=== PATIENT | female | born 1995 | race Caucasian/White ===

== ENCOUNTER 2018-03-06 20:14 | Inpatient (IN) | payer OTHER ==
[2018-03-06] MEDS ORDERED: BUTORPHANOL 2 MG INJ IV (21:30)
[2018-03-06] MEDS ORDERED: LIDOCAINE 1% (MPF) 30 ML INJ INJ (21:30)
[2018-03-06] MEDS ORDERED: OXYTOCIN 30 UNITS/LR 500 ML IV (21:30)
[2018-03-06] MEDS ORDERED: CARBOPROST 250 MCG INJ IM (21:30)
[2018-03-06] MEDS ORDERED: METHYLERGONOVINE 0.2 MG INJ IM (21:30)
[2018-03-06] MEDS ORDERED: MINERAL OIL LIGHT 10 ML VIAL TOP (21:30)
[2018-03-06] MEDS ORDERED: MISOPROSTOL 200 MCG TAB PR (21:30)
[2018-03-06] MEDS: LACTATED RINGER'S 1,000 ML IV (21:30)
[2018-03-06] MEDS: AMPICILLIN 2 GM/NS (PMX) 100 ML IV (21:53)
[2018-03-06 21:55] LABS: ADD MAN DIFF? NO
[2018-03-06 21:56] LABS: BASOPHILS % 0.2 % (0.0-2.0); EOSINOPHILS # 0.1 10^3/ul (0.0-0.5); EOSINOPHILS % 0.9 % (0.0-7.0); HEMATOCRIT 30.8 % (37.0-47.0); HEMOGLOBIN 9.4 g/dl (12.0-16.0); LYMPHOCYTES # 1.8 10^3/ul (0.8-2.9); LYMPHOCYTES % 21.4 % (15.0-51.0); MEAN CORPUSCULAR HGB CONC 30.5 g/dl (32.0-37.0); MEAN CORPUSCULAR VOLUME 81.9 fl (82.0-101.0); MEAN PLATELET VOLUME 11.1 fl (7.4-10.4); MONOCYTE # 0.6 10^3/ul (0.3-0.9); MONOCYTES % 7.7 % (0.0-11.0); NEUTROPHIL # 5.6 10^3/ul (1.6-7.5); NEUTROPHILS % 68.8 % (39.0-77.0); PLATELET COUNT 258 10^3/UL (140-415); RED BLOOD COUNT 3.76 10^6/ul (4.20-5.40); RED CELL DISTRIBUTION WIDTH 14.3 % (11.5-14.5)
[2018-03-06 21:56] LABS: WHITE BLOOD COUNT 8.2 10^3/ul (4.8-10.8)
[2018-03-06 22:16] LABS: INR 0.99; PARTIAL THROMBOPLASTIN TIME 29.7 Sec (25.0-35.0); PROTIME 13.2 Sec (11.9-14.9)
[2018-03-06 23:02] LABS: HIV 1&2 ANTIBODY NEGATIVE (NEGATIVE)
[2018-03-07] LABS: HEPATITIS B SURFACE ANTIGEN NEGATIVE (NEGATIVE)
[2018-03-07] MEDS: DINOPROSTONE 10 MG VAG SUPP VAG (00:03)
[2018-03-07] MEDS: AMPICILLIN 1 GM/NS (PMX) 50 ML IV ×5 (01:44→20:04)
[2018-03-07] MEDS: LACTATED RINGER'S 1,000 ML IV ×2 (07:38→17:27)
[2018-03-07 16:56] LABS: RAPID PLASMA REAGIN NONREACTIVE (NR)
[2018-03-08] MEDS: AMPICILLIN 1 GM/NS (PMX) 50 ML IV ×5 (00:45→17:30)
[2018-03-08] MEDS: LACTATED RINGER'S 1,000 ML IV ×4 (03:08→11:55)
[2018-03-08] MEDS: OXYTOCIN 30 UNITS/LR 500 ML IV ×3 (09:01→18:02)
[2018-03-08] MEDS ORDERED: FENTAnyl 2MCG/ML-ROPIV 0.2% 100 ML (10:06)
[2018-03-08] MEDS ORDERED: NALOXONE (0.4 MG/ML) INJ IV (10:30)
[2018-03-08] MEDS: FENTAnyl 2MCG/ML-ROPIV 0.2% 100 ML BAG EPI ×2 (11:55→16:52)
[2018-03-08] MEDS ORDERED: AZITHROMYCIN 500MG/NS (PMX) 250 ML IVPB (12:30)
[2018-03-08] MEDS: AZITHROMYCIN 500MG/NS (PMX) 250 ML IVPB (13:10)
[2018-03-08] MEDS: MINERAL OIL LIGHT 10 ML VIAL TOP (17:32)
[2018-03-08] MEDS: IBUPROFEN 600 MG TAB PO (17:47)
[2018-03-08] MEDS ORDERED: DIBUCAINE 1% 30 GM OINT PR (20:30)
[2018-03-08] MEDS ORDERED: BENZOCAINE 20% 56 ML SPRAY TOP (20:30)
[2018-03-08] MEDS: LACTATED RINGER'S 1,000 ML IV* (20:30)
[2018-03-08] MEDS ORDERED: HYDROCODONE/APAP (5/325) TAB PO (20:30)
[2018-03-08] MEDS ORDERED: MISOPROSTOL 200 MCG TAB PR (20:30)
[2018-03-08] MEDS ORDERED: ZOLPIDEM 5 MG TAB PO (20:30)
[2018-03-08] MEDS ORDERED: OXYTOCIN 30 UNITS/LR 500 ML IV (20:30)
[2018-03-08] MEDS ORDERED: METHYLERGONOVINE 0.2 MG INJ IM (20:30)
[2018-03-08] MEDS ORDERED: CARBOPROST 250 MCG INJ IM (20:30)
[2018-03-08] MEDS ORDERED: WITCH HAZEL/GLYCERIN PAD PR (20:30)
[2018-03-08] MEDS: SENNA/DOCUSATE NA (8.6MG/50MG) TAB PO (21:32)
[2018-03-08] MEDS: MAGNESIUM HYDROXIDE 30ML CUP PO (21:32)
[2018-03-09] MEDS: LANOLIN 7 GM TUBE TOP
[2018-03-09] MEDS: HYDROCODONE/APAP (5/325) TAB PO (03:01)
[2018-03-09] MEDS: LACTATED RINGER'S 1,000 ML IV* ×3 (04:21→19:48)
[2018-03-09] MEDS: CEPHALEXIN 500 MG CAP PO ×5 (06:03→23:39)
[2018-03-09] MEDS: IBUPROFEN 600 MG TAB PO ×5 (06:03→23:38)
[2018-03-09] MEDS: MAGNESIUM HYDROXIDE 30ML CUP PO ×2 (08:58→21:00)
[2018-03-09] MEDS: SENNA/DOCUSATE NA (8.6MG/50MG) TAB PO ×2 (08:58→21:00)
[2018-03-09 09:59] LABS: ADD MAN DIFF? NO
[2018-03-09 10:05] LABS: WHITE BLOOD COUNT 10.3 10^3/ul (4.8-10.8)
[2018-03-09 10:05] LABS: BASOPHILS % 0.3 % (0.0-2.0); EOSINOPHILS # 0.1 10^3/ul (0.0-0.5); EOSINOPHILS % 0.8 % (0.0-7.0); HEMATOCRIT 28.7 % (37.0-47.0); HEMOGLOBIN 9.2 g/dl (12.0-16.0); LYMPHOCYTES # 1.9 10^3/ul (0.8-2.9); LYMPHOCYTES % 18.7 % (15.0-51.0); MEAN CORPUSCULAR HEMOGLOBIN 25.8 pg (29.0-33.0); MEAN CORPUSCULAR HGB CONC 32.1 g/dl (32.0-37.0); MEAN CORPUSCULAR VOLUME 80.4 fl (82.0-101.0); MEAN PLATELET VOLUME 10.9 fl (7.4-10.4); MONOCYTE # 0.6 10^3/ul (0.3-0.9); MONOCYTES % 5.8 % (0.0-11.0); NEUTROPHIL # 7.6 10^3/ul (1.6-7.5); NEUTROPHILS % 73.9 % (39.0-77.0); PLATELET COUNT 224 10^3/UL (140-415); RED BLOOD COUNT 3.57 10^6/ul (4.20-5.40); RED CELL DISTRIBUTION WIDTH 14.2 % (11.5-14.5)
[2018-03-10] MEDS: LACTATED RINGER'S 1,000 ML IV* ×2 (04:21→12:21)
[2018-03-10] MEDS: IBUPROFEN 600 MG TAB PO ×2 (06:32→12:43)
[2018-03-10] MEDS: CEPHALEXIN 500 MG CAP PO ×2 (06:32→12:43)
[2018-03-10] MEDS: VARICELLA VACCINE LIVE/PF 1,350 UNIT/0.5 ML ML SC* (09:00)
[2018-03-10] MEDS: MAGNESIUM HYDROXIDE 30ML CUP PO (09:00)
[2018-03-10] MEDS: DIPHTH/TET/ACEL PERTUSS (ADULT) 0.5 ML VIAL IM* (09:00)
[2018-03-10] MEDS: MEASLES,MUMPS,RUBELLA VACCINE INJ SC* (09:00)
[2018-03-10] MEDS: SENNA/DOCUSATE NA (8.6MG/50MG) TAB PO (09:00)
== END 2018-03-10 17:30 | disposition home or self-care (01) | DRG 775 ==
LOC: L-D 20:14 → PP1 03-08 19:52 → L-D 20:24
PROVIDERS: Obstetrics & Gynecology
PROC: 3E0P7VZ Introduction of Hormone into Female Reproductive, Via Natural or Artificial Opening (ICD-10-PCS; 2018-03-07)
PROC: 10E0XZZ Delivery of Products of Conception, External Approach (ICD-10-PCS; principal; 2018-03-08)
DX: O48.0 Post-term pregnancy (principal); O99.824 Streptococcus B carrier state complicating childbirth; Z3A.40 40 weeks gestation of pregnancy; Z37.0 Single live birth
CPT/HCPCS: 62319; 76815; 85025; 85610; 85730; 86592; 86703; 86900; 86901; 87340